=== PATIENT | female | born 1970 | race Caucasian/White ===

== ENCOUNTER → 2020-07-08 | Outpatient (CLI) | payer OTHER ==
[2015-01-19 15:24] VITALS: BP 136/86
[~2020-07-08] MED LIST: IRON324 M1 PO; LOPRESSOR 225 MG/TAB PO; PROTONIX 40MG T40 MG PO; TORADOL10 MG PO
[2020-07-08 11:13] LABS: EOS # 0.2 (0.04-0.40); EOS % 4.5 % (1.0-5.0); HEMATOCRIT 43.4 % (37.0-47.0); HEMOGLOBIN 13.9 g/dL (12.5-16.0); LYMPH# 1.2 (1.50-4.00); MEAN CELL VOLUME 94 fl (78-100); MEAN CORPUSCULAR HEMOGLOBIN 30 pg (27-31); MEAN CORPUSCULAR HGB CONC 32 g/dL (33-37); MEAN PLATELET VOLUME 10.4 fl (7.4-10.4); MONO # 0.4 (0.20-0.80); NEU # 2.9 (1.40-6.50); PLATELET COUNT 227 K/mm3 (130-400); RED BLOOD COUNT 4.64 M/mm3 (4.10-5.30); RED CELL DISTRIBUTION WIDTH 13.2 % (11.5-14.5); WHITE BLOOD COUNT 4.9 K/mm3 (4.8-10.8)
[2020-07-08 11:17] LABS: ALBUMIN 4.4 g/dL (3.5-5.0); POTASSIUM 3.7 mmol/L (3.5-5.1)
[2020-07-08 11:18] LABS: CALCIUM 9.8 mg/dL (8.3-10.5)
[2020-07-08 11:19] LABS: TOTAL PROTEIN 7.9 g/dL (6.4-8.3)
[2020-07-08 11:21] LABS: TOTAL BILIRUBIN 0.5 mg/dL (0.2-1.2)
[2020-07-08 11:42] LABS: PH-URINE 7.5 (5.0 - 8.0); URINE APPEARANCE CLEAR; URINE BILIRUBIN NEGATIVE (NEGATIVE); URINE BLOOD NEGATIVE (NEGATIVE); URINE COLOR YELLOW; URINE GLUCOSE NEGATIVE (NEGATIVE); URINE KETONE NEGATIVE (NEGATIVE); URINE LEUKOCYTE ESTERASE NEGATIVE (NEGATIVE); URINE MUCUS PRESENT (NOT PRESENT); URINE NITRATE NEGATIVE (NEGATIVE); URINE PROTEIN(semi-quant) TRACE mg/dL (NEGATIVE); URINE UROBILINOGEN NORMAL (NORMAL); URINE WBC 0-1 /hpf (0-3)
== END ==
LOC: LAB 09:09
PROVIDERS: Internal Medicine
DX: Z00.00 Encounter for general adult medical examination without abnormal findings (principal); Z13.0 Encounter for screening for diseases of the blood and blood-forming organs and certain disorders involving the immune mechanism; I10 Essential (primary) hypertension

== ENCOUNTER → 2020-07-21 | Outpatient (CLI) | payer OTHER ==
[2015-01-19 15:24] VITALS: BP 136/86
== END ==
LOC: MAMMO 15:07
DX: Z12.31 Encounter for screening mammogram for malignant neoplasm of breast (principal)

== ENCOUNTER → 2022-02-01 | Outpatient (CLI) | payer OTHER | LOC: MAMMO 15:42 | DX: Z12.31 Encounter for screening mammogram for malignant neoplasm of breast (principal) ==

== ENCOUNTER → 2022-02-25 | Outpatient (CLI) | payer OTHER | LOC: RAD 08:44 | DX: S99.922A Unspecified injury of left foot, initial encounter (principal); X58.XXXA Exposure to other specified factors, initial encounter ==

== ENCOUNTER → 2023-07-24 | Outpatient (CLI) | payer OTHER, BC ==
[~2023-07-24] MED LIST changes: +HCTZ 25MG25 MG PO; +LIPITOR 10M10 MG/TAB PO; +ZITHROMAX Z PA250 MG PO
== END ==
LOC: RAD 09:10
DX: S82.142A Displaced bicondylar fracture of left tibia, initial encounter for closed fracture (principal)

== ENCOUNTER → 2024-08-11 | Outpatient (CLI) | payer OTHER | LOC: MAMMO 09:25 | DX: Z12.31 Encounter for screening mammogram for malignant neoplasm of breast (principal) ==

== ENCOUNTER 2024-10-08 14:15 | Emergency (ER) | payer OTHER ==
[~2024-10-08] VITALS: Wt 75.1 kg
[2024-10-08] MEDS ORDERED: LOPRESSOR 225 MG/TAB PO (15:43)
[2024-10-08] MEDS ORDERED: Lidocaine 2% Viscous 15 ML UNIT DOSE CUP MM ONE (15:45)
[2024-10-08] MEDS ORDERED: AMOXICILLIN AND1 TA2 PO (16:38)
[2024-10-08] MEDS ORDERED: Amoxicillin/Clavulanate K+ 875/125 MG TAB PO ONE (16:45)
[2024-10-08 16:49] VITALS: BP 131/93
== END 2024-10-08 16:56 | disposition home or self-care (01) ==
LOC: ED 14:15
DX: J02.9 Acute pharyngitis, unspecified (principal)